=== PATIENT | female | born 1950 | race Caucasian/White ===

== ENCOUNTER 2017-09-18 08:28 | Day surgery (SDC) | payer OTHER ==
[~2017-09-18] VITALS: Ht 157.5 cm; Wt 102.5 kg
[~2017-09-18 08:28] MED LIST: ASPIRIN EC325 MG PO; BACTRIM,SEPT1 TABLET PO; CARVEDILOL25 MG PO; CELEBREX200 MG PO; DICLOFENAC SOD100 MG PO; FERROUS SULFAT325 MG PO; FLEXERIL10 MG PO; HYDROCODON-ACE1 EAC7 PO; LISINOPRIL-HCT1 EAC3 PO; PROTONIX IV40 MG PO; PROTONIX40 MG PO; SENNA-TIME S T1 EACH PO; TYLENOL EXTRA500 MG PO
[2017-09-18 08:59] VITALS: BP 129/74
[2017-09-18] MEDS ORDERED: CYTOTEC200 MCG VG (09:06)
[2017-09-18] MEDS ORDERED: MOTRIN800 MG PO (13:29)
[2017-09-18] MEDS ORDERED: PERCOCET 5/31 TABLET PO (13:29)
[2017-09-18 14:51] VITALS: BP 147/65
[2017-09-18 15:51] VITALS: BP 143/86
== END 2017-09-18 16:36 | disposition home or self-care (01) ==
LOC: SDC 08:28
DX: N84.0 Polyp of corpus uteri (principal); N83.202 Unspecified ovarian cyst, left side; N88.2 Stricture and stenosis of cervix uteri; I49.3 Ventricular premature depolarization; I10 Essential (primary) hypertension; E66.01 Morbid (severe) obesity due to excess calories; Z68.41 Body mass index [BMI] 40.0-44.9, adult
CPT/HCPCS: 88304; 88305; J0131; J1100; J1170; J2250; J2405; J3010; Q0175